=== PATIENT | male | born 1995 | race African-American/Black ===

== ENCOUNTER 2019-01-15 10:18 | Emergency (ER) | payer BC ==
[~2019-01-15] VITALS: Ht 162.6 cm; Wt 75.0 kg
[2019-01-15 10:28] VITALS: Ht 162.6 cm; Wt 75.0 kg
--- NOTE | 2019-01-15 11:46 | ERD ---
ER Documentation Chief Complaint Chief Complaint Pt with chest tightness and l arm numbness , using cocaine today. HPI This is a 23-year-old male who presents for evaluation of chest tightness, after using crack cocaine early in the morning. Patient has no cardiac history, denies shortness of breath, states that he feels anxious after having done this. No leg swelling, no hemoptysis, no history of coagulopathy. ROS All systems reviewed and are negative except as per history of present illness. Medications Home Meds No Active Prescriptions or Reported Meds Allergies Allergies: Coded Allergies: No Known Allergy (Unverified , 01/15/19) PMhx/Soc Medical and Surgical Hx: pt denies Medical Hx, pt denies Surgical Hx Hx Alcohol Use: No Hx Substance Use: Yes (COCAINE, HEROIN) Hx Tobacco Use: Yes (VAPE) Smoking Status: Current every day smoker FmHx Family History: No diabetes Physical Exam Vitals Vital Signs Date Temp Pulse Resp B/P (MAP) Pulse Ox O2 O2 Flow FiO2 Time Delivery Rate 01/15/19 98.7 95 14 108/70 98 10:28 (83) Physical Exam Const: No acute distress Head: Atraumatic Eyes: Normal Conjunctiva ENT: Normal External Ears, Nose and Mouth. Neck: Full range of motion. No meningismus. Resp: Clear to auscultation bilaterally, no wheezes rales or rhonchi Cardio: Regular rate and rhythm, no murmurs, no JVD Abd: Soft, non tender, non distended. Normal bowel sounds Skin: No petechiae or rashes Back: No midline or flank tenderness Ext: No cyanosis, or edema Neur: Awake and alert Psych: Normal Mood and Affect Result Diagram: 01/15/19 1100 01/15/19 1100 Results 24 hrs Laboratory Tests Test 01/15/19 11:00 White Blood Count 9.3 10^3/ul Red Blood Count 4.72 10^6/ul Hemoglobin 14.5 g/dl Hematocrit 41.9 % Mean Corpuscular Volume 88.8 fl Mean Corpuscular Hemoglobin 30.7 pg Mean Corpuscular Hemoglobin Concent 34.6 g/dl Red Cell Distribution Width 11.9 % Platelet Count 257 10^3/UL Mean Platelet Volume 10.1 fl Immature Granulocytes % 0.100 % Neutrophils % 80.7 % Lymphocytes % 13.3 % Monocytes % 4.9 % Eosinophils % 0.5 % Basophils % 0.5 % Nucleated Red Blood Cells % 0.0 /100WBC Immature Granulocytes # 0.010 10^3/ul Neutrophils # 7.5 10^3/ul Lymphocytes # 1.2 10^3/ul Monocytes # 0.5 10^3/ul Eosinophils # 0.1 10^3/ul Basophils # 0.1 10^3/ul Nucleated Red Blood Cells # 0.0 10^3/ul Sodium Level 140 mmol/L Potassium Level 3.7 mmol/L Chloride Level 102 mmol/L Carbon Dioxide Level 26 mmol/L Anion Gap 12 Blood Urea Nitrogen 14 mg/dl Creatinine 1.15 mg/dl Est Glomerular Filtrat Rate mL/min > 60 mL/min Glucose Level 122 mg/dl Calcium Level 9.8 mg/dl Troponin I < 0.012 ng/ml [place] [id number] Radiology Main Line: [phone] DIAGNOSTIC IMAGING REPORT Patient: JOSE NAZARIO : 1995 Age: 23 Sex: M MR #: [id number] DOS: 01/15/19 1040 Ordering MD: NIRMAL ANGULO MD Location: E/R Room/Bed: PROCEDURE: XR Chest. CLINICAL INDICATION: Chest pain TECHNIQUE: Portable single view of the chest COMPARISON: None. FINDINGS: The lungs are free of focal infiltrate. There is no pleural effusion or pneumothorax seen. The heart size and mediastinal contours are within normal limits. Osseous structures appear intact. IMPRESSION: No acute process is seen within the chest. RPTAT: [facility] Physician Haylee Date Time Electronically viewed and signed by Physician Haylee on 01/15/2019 11:20 RF/ CC: NIRMAL ANGULO MD [id number] Procedures/MDM Is a 23-year-old male who presents for evaluation of chest tightness. Patient EKG showed no evidence of ischemia, his cardiac work-up was also negative, other than his recent drug use, the patient has no risk factors for acute coronary syndrome, I have a low suspicion for pulmonary embolism, chest x-ray was unremarkable, low suspicion for aortic dissection. I discussed findings with the patient felt comfortable with discharge home, at discharge she was ambulatory, with a steady gait alert and oriented x4 and in no distress. Departure Diagnosis: Primary Impression: Drug use Condition: Good Patient Instructions: Drug Abuse NIRMAL ANGULO MD Jan 15, 2019 11:46
[2019-01-15 11:58] VITALS: BP 121/70; PULSE 65; RESP 20
== END 2019-01-15 12:10 | disposition home or self-care (01) ==
LOC: E/R 10:18
DX: F14.90 Cocaine use, unspecified, uncomplicated (principal); F17.210 Nicotine dependence, cigarettes, uncomplicated
CPT/HCPCS: 71045; 80048; 84484; 85025; 93005